=== PATIENT | female | born 1950 ===

== ENCOUNTER 2018-09-02 07:48 | Outpatient (CLI) | payer OTHER | END 2018-09-02 07:50 | disposition home or self-care (01) | LOC: SONOGRAMA 07:48 | DX: N63.10 Unspecified lump in the right breast, unspecified quadrant (principal); N63.20 Unspecified lump in the left breast, unspecified quadrant ==

== ENCOUNTER 2024-01-28 07:45 | Outpatient (CLI) | payer OTHER | END 2024-01-28 07:48 | disposition home or self-care (01) | LOC: SONOGRAMA 07:45 | PROVIDERS: ATTEND Pathology Anatomic Pathology & Clinical Pathology | DX: D34 Benign neoplasm of thyroid gland (principal); E07.89 Other specified disorders of thyroid; E04.1 Nontoxic single thyroid nodule ==